=== PATIENT | female | born 2000 | race Caucasian/White ===

== ENCOUNTER 2022-11-23 04:53 | Emergency (ER) | payer OTHER ==
[~2022-11-23] VITALS: Ht 170.2 cm; Wt 68.0 kg
[2022-11-23 07:46] VITALS: BP 124/77
== END 2022-11-23 07:45 | disposition home or self-care (01) ==
LOC: ED 04:53
DX: J20.8 Acute bronchitis due to other specified organisms (principal); Z20.822 Contact with and (suspected) exposure to COVID-19; Z88.0 Allergy status to penicillin
CPT/HCPCS: 36415; 71045; 71260; 80053; 84703; 85025; 85379; 87502; 99285 25; C9803; J2405; J7121; Q9967; U0002